=== PATIENT | male | born 1945 | race Two or more races ===

== ENCOUNTER 2024-11-06 07:04 | Day surgery (SDC) | payer MEDICARE, BC, OTHER, SELFPAY ==
--- NOTE | 2024-11-05 09:23 | EKG_ITS ---
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
[2024-11-05 12:36] VITALS: BMI 27.6
[2024-11-05 13:34] LABS: Basophils # (Auto) 0.1 Thou/mm3 (0.0-0.2); Basophils % (Auto) 1 % (0-2.5); Eosinophils # (Auto) 0.2 Thou/mm3 (0.0-0.5); Eosinophils % (Auto) 3 % (0-10); Hematocrit 39.4 % (41.0-53.0); Hemoglobin 13.3 g/dL (13.5-16.0); Immature Granulocytes % (Auto) 0 % (0-0); Immature Granulocytes Auto 0.01 Thou/mm3 (0.00-0.00); Lymphocytes # (Auto) 1.8 Thou/mm3 (1.0-4.8); Lymphocytes % (Auto) 36 % (10-50); Mean Corpuscular HGB Conc 33.8 g/dl (31.0-37.0); Mean Corpuscular Hemoglobin 29.4 pg (25.0-35.0); Mean Corpuscular Volume 87 fL (80-100); Monocytes # (Auto) 0.5 Thou/mm3 (0.0-0.8); Monocytes % (Auto) 9 % (0-12); Neutrophils # (Auto) 2.5 Thou/mm3 (1.8-7.7); Neutrophils % (Auto) 50 % (37-80); Nucleated Red Blood Cell % 0 /100 WBC (0); Platelet Count 130 Thou/mm3 (140-440); RDW Standard Deviation 37.8 fL (35.1-43.9); Red Blood Count 4.52 Miln/mm3 (4.50-5.90)
[2024-11-05 13:39] LABS: Anion Gap 7 (7-16); BUN/Creatinine Ratio 16 Ratio (12-20); Blood Urea Nitrogen 19 mg/dL (9-23); Calcium 9.9 mg/dL (8.3-10.6); Carbon Dioxide 28.6 mMol/L (20.0-31.0); Chloride 104 mMol/L (98-107); Creatinine (Component) 1.2 mg/dL (0.6-1.3); Glucose 101 mg/dL (74-106); Osmolality,Calculated 281 (275-295); Potassium 4.3 mMol/L (3.4-5.1); Sodium 140 mMol/L (136-145); eGFR > 60 See Note
[2024-11-05 13:44] LABS: INR 1.1 (0.9-1.3); Partial Thromboplastin Time 30.8 Seconds (22.0-36.0); Prothrombin Time 12.3 Seconds (9.0-12.2)
[2024-11-06] VITALS (12 sets, daily range): BP systolic 113–146; BP diastolic 59–71; PULSE 42–69; RESP 12–17; TEMP 36.6–36.7; O2SAT 92–99
[2024-11-06] MEDS: DIAZEPAM 5 MG TABLET PO (07:30)
[2024-11-06] MEDS: SODIUM CHLORIDE 0.45 % 500 ML 100 ML IV (07:35)
--- NOTE | 2024-11-06 08:07 | PD.CARDCATH ---
Cardiac Cath Procedure Procedure Narrative Date of the procedure 11/06/2024 Title of the procedure 1. Left heart catheterization 2. Left coronary angiogram 3. Right coronary angiogram 4. Left ventriculogram 5. Conscious sedation 6. Radiographic interpretation supervision 7. Ultrasound guidance for Right radial access Indication for the procedure This is a 79-year-old gentleman with past medical history of hypertension hyperlipidemia patient was planning for surgery Cardiolite scan was abnormal Cardiac catheter and cholangiogram recommended Procedure This is done in the cardiac lab under continuous electrocardiographic monitoring Intermittent blood pressure monitoring right radial arterial access obtained using modified Seldinger technique 6 Turkish radial sheath was placed under ultrasound guidance TIG catheter was used for selective injection of the Left coronary artery TIG cather was used for selective injection of the Right coronary artery TIG cather was used for LV gram Findings Hemodynamics Left ventricular systolic function is 55% Left ventricular end-diastolic pressure is 18 mmHg Gradient across the aortic valve is 0 mm gradient Coronary anatomy Right Dominance Left main coronary artery is Normal Left anterior descending artery is Normal Diagonal vessel is Luminal irregularities Left circumflex artery is Normal Obtuse marginal vessel is No significant coronary lesion Right coronary artery is Codominant vessel normal Posterior descending artery is Normal Conclusion No significant coronary lesion Recommendation Continue medical management
--- NOTE | 2024-11-06 09:30 | PC.NURSE ---
TR band removed at this time. Surgical site asymptomatic, no active bleeding, no hematoma noted on right upper extremity or around the surgical site. Capillary refill < 3 seconds. No noted changes in color or temperature on right upper extremity. Patient denies general and localized pain, no loss in sensation, no tingling or numbness felt to right upper extremity. Tagaderm and Coban wrap applied. Will continue to monitor
--- NOTE | 2024-11-06 09:45 | PC.NURSE ---
Surgical site remains asymptomatic, no active bleeding, no hematoma noted on right upper extremity or around the surgical site. Capillary refill < 3 seconds. No noted changes in color or temperature on right upper extremity. Patient denies generalized and localized pain, no loss in sensation, no tingling or numbness felt to right upper extremity. Tagaderm and Coban wrap in place, clean, and dry. Will continue to monitor
== END 2024-11-06 11:25 | disposition hospice, home (50) ==
PROVIDERS: PCP Family Medicine; Referring Provider Internal Medicine; Visit Provider Internal Medicine
PROC: (CPT 93458; principal; 2024-11-06 07:45)
DX: I25.119 Atherosclerotic heart disease of native coronary artery with unspecified angina pectoris (principal); E78.5 Hyperlipidemia, unspecified; I10 Essential (primary) hypertension; I48.91 Unspecified atrial fibrillation; Z79.01 Long term (current) use of anticoagulants
CPT/HCPCS: 93458; 36415; 80048; 85025; 85610; 85730; 93005; 99152; A4216; A4649; C1769; C1887; C1894; J0171; J0461; J0583; J1643; J2250; J2310; J2371; J3010; J3490; J7040; Q9967; A9270; J1644; J2305

== ENCOUNTER → 2024-12-11 | Outpatient (BNVA) | payer MEDICARE, BC, OTHER, SELFPAY | END | disposition home or self-care (01) | PROVIDERS: PCP Family Medicine; Referring Provider Family Medicine; Visit Provider Urology | DX: N41.1 Chronic prostatitis (principal); N40.1 Benign prostatic hyperplasia with lower urinary tract symptoms; N13.8 Other obstructive and reflux uropathy | CPT/HCPCS: 55700; 76942; 81003; 96372; A4649; J1580; J3490; A9270 ==

== ENCOUNTER → 2025-01-17 | Outpatient (CLI) | payer MEDICARE, BC, OTHER, SELFPAY ==
[2025-01-17 14:42] LABS: Glucose Estimated Average 111 mg/dL (80-131); Hemoglobin A1C 5.5 % Hgb (4.8-6.0)
[2025-01-17 15:32] LABS: Cardiac Risk Estimate 2.2 RATIO (4.0-6.7); Cholesterol 115 mg/dL (132-200); HDL Cholesterol 52 mg/dL (40-60); LDL Cholesterol,Calculated 51 mg/dL (0-130); Triglycerides 62 mg/dL (30-150)
== END | disposition home or self-care (01) ==
LOC: COPL 13:34
PROVIDERS: PCP Family Medicine; Referring Provider Psychiatry & Neurology Neurology; Visit Provider Psychiatry & Neurology Neurology
DX: I63.9 Cerebral infarction, unspecified (principal)
CPT/HCPCS: 36415; 80061; 83036

== ENCOUNTER → 2025-03-25 | Outpatient (BNVA) | payer MEDICARE, BC, OTHER, SELFPAY | END | disposition home or self-care (01) | PROVIDERS: PCP Family Medicine; Referring Provider Family Medicine; Visit Provider Urology | DX: N40.1 Benign prostatic hyperplasia with lower urinary tract symptoms (principal); N13.8 Other obstructive and reflux uropathy; N32.81 Overactive bladder; K40.90 Unilateral inguinal hernia, without obstruction or gangrene, not specified as recurrent; Z86.73 Personal history of transient ischemic attack (TIA), and cerebral infarction without residual deficits | CPT/HCPCS: 81003; 99212; G0463 ==

== ENCOUNTER → 2025-03-25 | Outpatient (CLI) | payer MEDICARE, BC, OTHER, SELFPAY ==
[2025-03-27 19:52] LABS: PSA, Free 1.27 ng/mL; PSA, Total 5.3 ng/mL (< OR = 4.0)
[2025-03-28 06:58] LABS: PSA, % Free 24 % (calc) (>25)
== END | disposition home or self-care (01) ==
LOC: COPL 11:39
PROVIDERS: PCP Family Medicine; Referring Provider Urology; Visit Provider Urology
DX: R97.20 Elevated prostate specific antigen [PSA] (principal); N40.1 Benign prostatic hyperplasia with lower urinary tract symptoms
CPT/HCPCS: 36415; 84153; 84154

== ENCOUNTER → 2025-05-14 | Outpatient (BNVA) | payer MEDICARE, BC, OTHER, SELFPAY | END | disposition home or self-care (01) | PROVIDERS: PCP Family Medicine; Referring Provider Family Medicine; Visit Provider Urology | DX: N32.89 Other specified disorders of bladder (principal); N40.1 Benign prostatic hyperplasia with lower urinary tract symptoms; N13.8 Other obstructive and reflux uropathy; Z86.73 Personal history of transient ischemic attack (TIA), and cerebral infarction without residual deficits | CPT/HCPCS: 52000; 81003; 96372; A4217; A4649; C1894; J1580; A9270 ==

== ENCOUNTER → 2025-05-20 | Outpatient (CLI) | payer MEDICARE, BC, OTHER, SELFPAY ==
[2025-05-20 14:34] LABS: Anion Gap 4 (7-16); BUN/Creatinine Ratio 16 Ratio (12-20); Blood Urea Nitrogen 26 mg/dL (9-23); Calcium 9.5 mg/dL (8.3-10.6); Chloride 104 mMol/L (98-107); Creatinine (Component) 1.6 mg/dL (0.6-1.3); Glucose 101 mg/dL (74-106); Osmolality,Calculated 278 (275-295); Potassium 4.3 mMol/L (3.4-5.1); Sodium 137 mMol/L (136-145); eGFR 44 See Note
== END | disposition home or self-care (01) ==
LOC: COPL 13:43
PROVIDERS: PCP Family Medicine; Referring Provider Urology; Visit Provider Urology
DX: R31.0 Gross hematuria (principal)
CPT/HCPCS: 36415; 80048

== ENCOUNTER → 2025-05-31 | Outpatient (BNVA) | payer MEDICARE, BC, OTHER, SELFPAY | END | disposition home or self-care (01) | PROVIDERS: PCP Family Medicine; Referring Provider Family Medicine; Visit Provider Urology | DX: N40.0 Benign prostatic hyperplasia without lower urinary tract symptoms (principal); I48.91 Unspecified atrial fibrillation | CPT/HCPCS: 99212; G0463 ==

== ENCOUNTER → 2025-06-06 | Outpatient (BNVA) | payer MEDICARE, BC, OTHER, SELFPAY | END | disposition home or self-care (01) | PROVIDERS: PCP Family Medicine; Referring Provider Family Medicine; Visit Provider Urology | DX: N40.1 Benign prostatic hyperplasia with lower urinary tract symptoms (principal); R39.12 Poor urinary stream; Z86.73 Personal history of transient ischemic attack (TIA), and cerebral infarction without residual deficits | CPT/HCPCS: 51741; 51798 ==

== ENCOUNTER → 2025-07-30 | Outpatient (BNVA) | payer MEDICARE, BC, OTHER, SELFPAY | END | disposition home or self-care (01) | PROVIDERS: PCP Family Medicine; Referring Provider Family Medicine; Visit Provider Urology | DX: N40.1 Benign prostatic hyperplasia with lower urinary tract symptoms (principal); N13.8 Other obstructive and reflux uropathy; N32.81 Overactive bladder; Z98.890 Other specified postprocedural states; N28.1 Cyst of kidney, acquired; N13.30 Unspecified hydronephrosis; I48.91 Unspecified atrial fibrillation; N18.30 Chronic kidney disease, stage 3 unspecified | CPT/HCPCS: 81003; 99212; G0463 ==

== ENCOUNTER 2025-08-12 12:04 | Emergency (ER) | payer MEDICARE, BC, OTHER, SELFPAY ==
[2025-08-12 12:06] VITALS: BMI 26.3
--- NOTE | 2025-08-12 12:27 | XR_ITS ---
Examination: CT abdomen and pelvis without contrast. Coronal 3-D reconstructions. Sagittal 2-D reconstructions. Date and time of exam:August 12, 2025 1401 hours INDICATIONS: Lower abdominal pain and constipation beginning 2 days ago CTDI: vol (mGy): 8.26 DLP: (mGycm): 507 Technique: Axial images of the abdomen have been obtained, 3 mm slice thickness Intravenous contrast material has not been administered. Low dose protocols were performed. One or more of the following dose reduction techniques were used; automated exposure control, adjustment of the mA and/or KV according to patient size, use of iterative reconstruction technique. Findings: 20 mm posterior right lobe liver lesion No gallstones No pancreatic or adrenal mass Spleen is not enlarged Findings most consistent with 4 cm left parapelvic cyst, no renal or ureteral calculi Left lateral periaortic lymphadenopathy, the largest lymph node 16 mm No bowel obstruction Normal appendix No diverticulitis Prostatomegaly transverse dimension 5.6 cm Contracted urinary bladder with wall thickening up to 12 mm IMPRESSION: Recommend repeating this study with intravenous contrast to confirm 4 cm left parapelvic cysts and exclude left hydronephrosis as well as to better assess for abdominal lymphadenopathy Cystitis pattern prostatomegaly
--- NOTE | 2025-08-12 12:27 | PD.EDRME ---
Rapid Medical Screening Exam RME Arrival date/time: 08/12/25 12:04 80-year-old male with a history of hyperlipidemia presents to the emergency room with a chief complaint of lower abdominal pain x 2 days I have greeted and performed a focused initial assessment of this patient. A comprehensive ED assessment and evaluation of the patient, analysis of all test results, and completion of the medical decision making process will be conducted by additional ED providers. Chief Complaint: Abdominal Pain Time Seen by Provider: 08/12/25 12:11 Vital signs reviewed by provider: Yes
--- NOTE | 2025-08-12 12:42 | PD.EDABDPN ---
ED Abdominal Pain RME/HPI General Chief Complaint: Abdominal Pain Stated complaint: ABD PAIN 2ND NO BM X TUESDAY Time seen by provider: 08/12/25 12:11 Arrival date/time: 08/12/25 12:04 80-year-old male with a history of hyperlipidemia presents to the emergency room with a chief complaint of lower abdominal pain x 2 days Source: patient Mode of arrival: ambulatory Limitations: no limitations RME / HPI RME / HPI narrative: 08/12/25 12:04 80-year-old male with a history of hyperlipidemia presents to the emergency room with a chief complaint of lower abdominal pain x 2 days I have greeted and performed a focused initial assessment of this patient. A comprehensive ED assessment and evaluation of the patient, analysis of all test results, and completion of the medical decision making process will be conducted by additional ED providers. Related Data Home Medications ?Medication ?Instructions ?Recorded ?Confirmed TAMSULOSIN HCL 0.4 mg PO QDAY ##90 11/01/16 07/30/25 aspirin 81 mg capsule 81 mg PO QDAY 12/11/24 07/30/25 atorvastatin 10 mg tablet 10 mg PO QDAY 05/31/25 07/30/25 Allergies Allergy/AdvReac Type Severity Reaction Status Date / Time NKA* Allergy Uncoded 08/12/25 12:07 ED Exam General Limitations: Present no limitations Course Orders Category Date Time Status CT abdomen pelvis wo con Stat Exams 08/12/25 12:27 Ordered CBC Stat Lab 08/12/25 12:27 Ordered CMP [Comprehensive Metabolic Panel] Stat Lab 08/12/25 12:27 Ordered UA [Urinalysis] Stat Lab 08/12/25 12:27 Ordered Urine Culture Stat Lab 08/12/25 12:27 Ordered Discharge Plan Prescriptions/Referrals Prescriptions/Med Rec: No Action aspirin 81 mg capsule 81 mg PO QDAY atorvastatin 10 mg tablet 10 mg PO QDAY TAMSULOSIN HCL 0.4 MG CAP.ER.24H 0.4 mg PO QDAY Qty: 90 Referrals: Evgeny Levine MD [Primary Care Provider, Family Practice] - In 1 week Patient/Caregiver Discharge Instructions Print Language: New Zealander
[2025-08-12 12:58] LABS: Basophils # (Auto) 0.1 Thou/mm3 (0.0-0.2); Basophils % (Auto) 1 % (0-2.5); Eosinophils # (Auto) 0.1 Thou/mm3 (0.0-0.5); Eosinophils % (Auto) 1 % (0-10); Hematocrit 37.0 % (41.0-53.0); Hemoglobin 12.4 g/dL (13.5-16.0); Immature Granulocytes Auto 0.01 Thou/mm3 (0.00-0.00); Lymphocytes # (Auto) 1.3 Thou/mm3 (1.0-4.8); Lymphocytes % (Auto) 21 % (10-50); Mean Corpuscular HGB Conc 33.5 g/dl (31.0-37.0); Mean Corpuscular Hemoglobin 29.6 pg (25.0-35.0); Mean Corpuscular Volume 88 fL (80-100); Monocytes # (Auto) 0.5 Thou/mm3 (0.0-0.8); Monocytes % (Auto) 8 % (0-12); Neutrophils # (Auto) 4.1 Thou/mm3 (1.8-7.7); Neutrophils % (Auto) 68 % (37-80); Nucleated Red Blood Cell # 0.00 Thou/mm3 (0.00-0.00); Nucleated Red Blood Cell % 0 /100 WBC (0); Platelet Count 183 Thou/mm3 (140-440); RDW Standard Deviation 38.8 fL (35.1-43.9); Red Blood Count 4.19 Miln/mm3 (4.50-5.90); White Blood Count 5.9 Thou/mm3 (3.8-10.6)
[2025-08-12 13:17] LABS: Alanine Aminotransferase 9 U/L (10-49); Albumin, Serum 4.6 gm/dL (3.4-4.8); Albumin/Globulin Ratio 1.3 (1.2-2.2); Alkaline Phosphatase 114 U/L (46-116); Anion Gap 9 (7-16); Aspartate Amino Transferase 16 U/L (0-34); BUN/Creatinine Ratio 8 Ratio (12-20); Bilirubin,Total 0.8 mg/dL (0.3-1.2); Blood Urea Nitrogen 15 mg/dL (9-23); Calcium 9.9 mg/dL (8.3-10.6); Calcium (Corrected) 9.9 mg/dL (8.5-10.1); Carbon Dioxide 26.9 mMol/L (20.0-31.0); Chloride 104 mMol/L (98-107); Creatinine (Component) 1.8 mg/dL (0.6-1.3); Estimated Creatinine Clearance 38.7 mL/min (>60); Globulin 3.5 gm/dL (2.3-3.5); Glucose 101 mg/dL (74-106); Osmolality,Calculated 280 (275-295); Potassium 4.3 mMol/L (3.4-5.1); Sodium 140 mMol/L (136-145); Total Protein 8.1 gm/dL (5.7-8.2); eGFR 38 See Note
[2025-08-12 13:32] LABS: Collection Type, Urine Clean Catch
[2025-08-12 13:59] LABS: Bilirubin,Urine Negative (Negative); Blood,Urine Negative (Negative); Clarity,Urine Clear (Clear/Hazy); Color,Urine Yellow (Lt Yel-Yel); Glucose, Urine Negative (Negative); Ketones,Urine Negative (Negative); Leukocyte Esterase,Urine Positive (Negative); Nitrite,Urine Negative (Negative); PH,Urine 5.5 (5.0-7.0); Protein,Urine 1+ (Neg - Trace); RBC,Urine 7 /hpf (0-3); Specific Gravity,Urine 1.032 (1.001-1.035); Squamous Epithelial Cell,Urine < 1 /hpf (0-5); Urobilinogen,Urine Negative mg/dL (0.0-1.0); WBC,Urine 14 /hpf (0-5)
--- NOTE | 2025-08-12 15:03 | PD.EDRME ---
Rapid Medical Screening Exam RME Arrival date/time: 08/12/25 12:04 08/12/25 12:04 80-year-old male with a history of hyperlipidemia presents to the emergency room with a chief complaint of lower abdominal pain x 2 days I have greeted and performed a focused initial assessment of this patient. A comprehensive ED assessment and evaluation of the patient, analysis of all test results, and completion of the medical decision making process will be conducted by additional ED providers. @1521 I reviewed the laboratory results and determined that the patient did not have creatinine clearance. I called Dr. Mock who recommended a renal ultrasound and a PET scan tomorrow. Chief Complaint: Abdominal Pain Time Seen by Provider: 08/12/25 12:11 Vital signs reviewed by provider: Yes RME Narrative: 08/12/25 12:04 80-year-old male with a history of hyperlipidemia presents to the emergency room with a chief complaint of lower abdominal pain x 2 days I have greeted and performed a focused initial assessment of this patient. A comprehensive ED assessment and evaluation of the patient, analysis of all test results, and completion of the medical decision making process will be conducted by additional ED providers.
--- NOTE | 2025-08-12 15:20 | XR_ITS ---
Examination: Retroperitoneal ultrasound, complete Technique: Multiple high resolution grayscale images of the retroperitoneum obtained, including kidneys and bladder. Exam date and time:August 12, 2025 1529 hours INDICATIONS: Right flank pain radiating to the mid abdomen one month ago, CT examination today of the abdomen 4 cm left parapelvic cysts versus hydronephrosis FINDINGS: Right kidney 11.8 cm cortex 1.6 cm Left kidney 10.7 cm cortex 1.7 cm Moderate left hydronephrosis Left kidney 3.5 cm cyst Contracted urinary bladder Significant prostatomegaly 70.0 cc no prostate nodules IMPRESSION: Moderate left hydronephrosis, which may be secondary to the significant prostatomegaly
--- NOTE | 2025-08-12 16:46 | EDNOTE_ITS ---
ED General RME/HPI General Chief complaint: Abdominal Pain Stated complaint: ABD PAIN 2ND NO BM X TUESDAY Time Seen by Provider: 08/12/25 12:11 Arrival date/time: 08/12/25 12:04 CC: Abdominal pain HPI ongoing for the past 6 weeks with progressive increase in severity this also includes intermittent constipation going from a bowel movement every 2 days to the last bowel movement was 7 days ago. Patient stated pain is becomes intolerable even though the patient has been seen by PCP and has a referral to the GI specialist. Patient does see Dr. Disla, urologist, for enlarged prostate. Patient denies chest pain shortness of breath difficulty breathing painful or bloody urination. Patient states she has had a weight loss of approximately 20 pounds over the last 6 weeks. RME / HPI RME / HPI narrative: 08/12/25 12:04 08/12/25 12:04 80-year-old male with a history of hyperlipidemia presents to the emergency room with a chief complaint of lower abdominal pain x 2 days I have greeted and performed a focused initial assessment of this patient. A comprehensive ED assessment and evaluation of the patient, analysis of all test results, and completion of the medical decision making process will be conducted by additional ED providers. @1521 I reviewed the laboratory results and determined that the patient did not have creatinine clearance. I called Dr. Mock who recommended a renal ultrasound and a PET scan tomorrow. Related Data Home Medications ?Medication ?Instructions ?Recorded ?Confirmed TAMSULOSIN HCL 0.4 mg PO QDAY ##90 11/01/16 07/30/25 aspirin 81 mg capsule 81 mg PO QDAY 12/11/2407/30 atorvastatin 10 mg tablet 10 mg PO QDAY 05/31/2507/30 Previous Rx's ?Medication ?Instructions ?Recorded ketorolac 10 mg tablet 10 mg PO Q8H #10 tabs polyethylene glycol 3350 17 4 g PO QDAY #238 grams gram/dose oral powder (Miralax) Allergies Allergy/AdvReac Type Severity Reaction Status Date / Time NKA* Allergy Uncoded 08/12/25 12:07 Review of Systems Review of Systems Narrative Review of Systems: GEN: No fever, no chills, no weight loss EYES: No discharge, no visual changes, no pain HEENT: No ear pain, no congestion, no sore throat PULM: No shortness of breath, no cough, no congestion CV: No chest pain, no dyspnea on exertion, no palpitations GI: No nausea, no vomiting, no diarrhea, + pain, no constipation : No frequency, no urgency, no dysuria MUSC/SKEL: No joint pain, no back pain SKIN: No rash PSYCH: No hallucinations, no depression HEME/LYMPH: No easy bleeding or bruising tendencies NEURO: No weakness, no headache Past Medical History Past Medical History NEUROLOGIC: Positive Cerebrovascular Accident (); Negative Neurological Disorders, Transient Ischemic Attacks (TIA), Dementia, Alzheimer's Disease, Parkinson's Disease, Brain Tumor, Meningitis, Seizures, Epilepsy, Multiple Sclerosis, Cerebral Palsy, Amyotrophic Lateral Sclerosis (ALS/Kimber Gehrig's), Guillain-Needmore Syndrome, Spina Bifida, Paralysis, Peripheral Neuropathy, Shelton's Palsy, Subdural Hematoma, Migraine, Head Trauma, Spinal Cord Injury or Traumatic Brain Injury CARDIAC: Negative Cardiac Disorders, Myocardial Infarction, Cardiac Arrhythmia, Atrial Fibrillation, Angina, Heart Murmur, Coronary Artery Disease, Atherosclerotic Heart Disease, Peripheral Vascular Disease, Hypercholeste rolemia, Aneurysm, Congestive Heart Failure, Congenital Heart Disease, Valvular Heart Disease, Rheumatic Fever, Cardiomyopathy, Edema, Pericarditis, Cellulitis, Deep Vein Thrombosis, Hypertension, Hypotension or Varicose Veins RESPIRATORY: Negative Chronic Obstructive Pulmonary Disease (COPD), Asthma, Bronchitis, Emphysema, Pneumonia, Pulmonary Fibrosis, Cystic Fibrosis, Tuberculosis, Pulmonary Embolism, Pulmonary Edema or Sleep Apnea GASTROINTESTINAL: Negative Gastrointestinal Disorders, Hepatitis, Cirrhosis, Pancreatitis, Celiac Disease, Gall Bladder Disease, Gastrointestinal Bleed, Esophageal Varices, Richey's Esophagus, Colitis, Ulcerative Colitis, Diverticulitis, Diverticulosis, Ulcer, Irritable Bowel, Crohn's Disease, Obstructive Bowel, Hiatal Hernia, Hemorrhoids, Gastroesophageal Reflux Disease or Obesity GENITOURINARY: Positive Benign Prostatic Hyperplasia (BIOPSY 8 Y +); Negative Genitourinary Disorders, Renal Disease, Kidney Stones, Polycystic Kidney Disease, Neurogenic Bladder, Inguinal Hernia or Dialysis REPRODUCTIVE: Negative Fibroids, Genital Herpes, Gonorrhea, Syphilis or Testicular Cancer MUSCULOSKELETAL: Positive Musculoskeletal Disorders; Negative Marfan's Syndrome, Arthritis, Rheumatoid Arthritis, Osteoporosis, Degenerative Disk Disease, Gout, Scoliosis, Carpal Tunnel Syndrome, Fibromyalgia, Fractures, Degenerative Joint Disease, Osteomyelitis or Poliovirus ENT: Negative Cataracts, Glaucoma, Blind, Retinal Detachment, Macular Degeneration, Ear Infection, Deafness, Head Trauma or Eye Prosthesis ENDOCRINE: Negative Endocrine Disorders, Diabetes Mellitus Type 1, Diabetes Mellitus Type 2, Hypoglycemia, Patricia's Syndrome, [place]'s Disease, Hyperthyroidism, Hypothyroidism, Parathyroid Disease, Pituitary Disease, Systemic Lupus Erythematosus, Syndrome of Inappropriate Antidiuretic Hormone (SIADH), Adrenal Disease or Graves' Disease HEMATOLOGIC: Positive Anemia (BORDERLINE); Negative Blood Disorders, Leukemia, Hemophilia, Thalassemia, Sickle Cell Disease or Clotting Problems PSYCHO/SOCIAL: Negative Psychiatric Problems, Schizophrenia, Recreational Drug Use, Bipolar Disorder, Depression, Anxiety, Behavior Problems, Self-Mutilation, Attention Deficit Disorder, Attention Deficit Hyperactivity Disorder, Depression or Eating Disorder OTHER HISTORY: Positive Cancer; Negative Hospitalization, Autoimmune Disease, Down Syndrome, Autism, D evelopmental Delay, Shingles, Falls, Blood Transfusions, Blood Transfusion Reaction (NA), Anesthesia Reactions, Organ Transplant, Chemotherapy, Radiation Therapy, Hyperbaric Therapy, MRSA, VRSA, Vancomycin-Resistant Enterococci, Human Immunodeficiency Virus (HIV), Chicken Pox, Measles, Mumps, Rubella ([place] Measles), Pertussis, Clostridium Difficile or Testicular Cancer Surgical History SURGICAL: Negative Cardiac Surgery, Open Heart Surgery, Coronary Artery Bypass Graft, Valve Replacement, Vascular Surgery, Coronary Stent, Cardiac Catheterization, Pacemaker, Angiogram, Auto Implanted Cardiovert Defib, Carotid Endarterectomy, Endocrine Surgery, Thyroidectomy, Ear Surgery, Tympanostomy Tube, Eye Surgery, Nose Surgery, Oral Surgery, Tonsillectomy, Adenoidectomy, Cochlear Implant, Corneal Transplant, Throat Surgery, Abdominal Surgery, Tracheostomy, Gastric Bypass Surgery, Gastrostomy, Bowel Surgery, Nephrectomy, Transurethral Resection, Joint Replacement, Amputation, Open Reduction Internal Fixation, Arthroscopy, Neurologic Surgery, Brain Shunt, Mastectomy, Lumpectomy, Hysterectomy, Tubal Ligation, Section, Vasectomy or Organ Transplant Social History SMOKING STATUS: Never smoker ED Exam Narrative Physical exam: [General: In mild discomfort not in any acute distress Head normocephalic HEENT: Within acceptable limits Neck is supple nontender Chest equal chest rise nontender to palpation Respiratory: Clear to auscultation no wheezes crackles or rubs CV: Rate rhythm is regular no murmurs rubs or clicks Abdomen is soft nontender no masses positive bowel sounds all 4 quadrants Back: No CVA tenderness no spinous process tenderness from cervical spine thoracic and lumbar spine Skin: Intact no petechiae rash induration ulceration or crepitus Extremities: Moving all extremity against resistance cap refill less than 2 seconds neurosensory intact Neuro: Awake alert oriented x3 Glascow coma 15 no focal deficits] Course Quality Measures none Orders Category Date Time Status CT Screening NOW Care 08/12/25 14:[address] abdomen pelvis w con Stat Exams 08/12/25 14:[address] abdomen pelvis wo con Stat Exams 08/12/25 12:27 Completed US renal BI Stat Exams 08/12/25 15:20 Completed CBC Stat Lab 08/12/25 12:38 Completed CMP [Comprehensive Metabolic Panel] Stat Lab 08/12/25 12:38 Completed UA [Urinalysis] Stat Lab 08/12/25 12:33 Completed Urine Culture Stat Lab 08/12/25 12:33 Received Discharge Plan Plan Patient Disposition: HOME (Self Care) Patient condition on transfer: Stable Prescriptions/Referrals Prescriptions/Med Rec: New polyethylene glycol 3350 [Miralax] 17 gram/dose powder 4 g PO QDAY Qty: 238 0RF ketorolac 10 mg tablet 10 mg PO Q8H Qty: 10 0RF Rx Instructions: maximum total duration of 5 days from all oral, intranasal, or parenteral formulations No Action aspirin 81 mg capsule 81 mg PO QDAY atorvastatin 10 mg tablet 10 mg PO QDAY TAMSULOSIN HCL 0.4 MG CAP.ER.24H 0.4 mg PO QDAY Qty: 90 Referrals: Sloan Disla MD [Physician, Urology] - In 1 week Evgeny Levine MD [Primary Care Provider, Family Practice] - In 1 week Geraldine Lilly MD [Physician, Gastroenterology] - In 1 week Problem List Clinical Impression: Abdominal pain, Hydroureter, Constipation, Lesion of liver, Renal insufficiency Patient/Caregiver Discharge Instructions Other Activity Instructions:: Take the medications as prescribed for temporary pain relief as well as for helping relieve the constipation. If there is a worsening of your symptoms in spite of the medications including fever increased abdominal pain nausea vomiting painful urination or bloody urination return imm ediately to the emergency room for reevaluation. Education Materials: Abdominal Pain, Treating Constipation Additional Instructions: Follow-up with Dr. Disla, and Dr. Lilly as stated. Print Language: Greek Stand Alone Forms: Kelsey Award Info., Patient Portal Info Letter PA/SENIOR PARALEGAL Supervising Physician PA/SENIOR PARALEGAL Supervising Physician: Amrit Bethea ENP MDM Narrative MDM hospital course (for use when minimal MDM required): Patient's case clinical findings laboratory results discussed with Dr. Soares, who agrees patient to be discharged home as the patient is already well- connected with Dr. Disla urology, and has a follow-up appointment in the next [address] Lilly. Patient was given a copy of his imaging. And advised to follow-up with both of these he was also advised if there is a worsening of symptoms including increased pain fever chills nausea vomit difficulty breathing or recurrent or worsening constipation to return the emergency room for reevaluation. I am not sure particularly with the causes as the patient has liver lesions as well as left hydroureter probably secondary to the prostate. The latter of which is already known by Dr. Disla. Clinical Information Provided by: patient Medical Records reviewed [facility] Meds/Rx considered, not ordered None Labs/Rad/Tests considered, not ordered None Chronic Illness/Social Conditions Explain: Prostamegaly hyperlipidemia EKG EKG not done Labs Labs: interpreted by [facility] Lab(s) Interpretation(s): CBC shows no leukocytosis H&H of 12.4 and 37.0 no thrombocytopenia CMP shows no significant electrolyte imbalances a creatinine of 1.8 BUN of 15. No transaminitis or T. bili elevation. Urine is 1+ protein. Leukocyte esterase +7 RBCs 14 WBCs less than 1 squamous epithelia no bacteria. Imaging Imaging interpretation: interpreted by [facility] Imaging Interpretation(s): CT is interpreted by the radiologist show peripelvic cysts recommending MRI Renal ultrasound shows left hydronephrosis probable secondary to prostamegaly.
== END 2025-08-12 18:47 | disposition home or self-care (01) ==
PROVIDERS: Nurse Practitioner Family; Emergency Provider Emergency Medicine; PCP Family Medicine
DX: N13.30 Unspecified hydronephrosis (principal); K76.9 Liver disease, unspecified; N28.9 Disorder of kidney and ureter, unspecified; K59.00 Constipation, unspecified; E78.5 Hyperlipidemia, unspecified
CPT/HCPCS: 36415; 74176; 76770; 80053; 81001; 85025; 87086; 99283

== ENCOUNTER 2025-09-20 10:00 | Day surgery (SDC) | payer MEDICARE, BC, OTHER, SELFPAY ==
[2025-09-19 12:06] VITALS: BMI 25.7
[2025-09-20] VITALS (11 sets, daily range): BP systolic 135–181; BP diastolic 62–100; PULSE 63–83; RESP 12–18; TEMP 36.6–36.8; O2SAT 97–100; BMI 25.8
[2025-09-20] MEDS: SODIUM CHLORIDE 0.9% 500 ML 500 ML 20 ML IV (11:55)
[2025-09-20] MEDS: MIDAZOLAM INJ 1 MG/ML VIAL 2 ML (ASD USE ONLY) 2 MG IVP (12:04)
[2025-09-20] MEDS: fentaNYL CIT INJ 50 mCg/ML AMP 2ML (ASD USE ONLY) IVP (12:04)
[2025-09-20] MEDS: hydrALAZINE INJ 20 MG/ML VIAL 10 MG IVP (12:15)
== END 2025-09-20 13:10 | disposition home or self-care (01) ==
PROVIDERS: PCP Family Medicine; Referring Provider Specialist; Visit Provider Specialist
PROC: 0DBE8ZX Excision of Large Intestine, Via Natural or Artificial Opening Endoscopic, Diagnostic (ICD-10-PCS; CPT 45380; principal; 2025-09-20 10:30)
DX: D12.5 Benign neoplasm of sigmoid colon (principal); K64.1 Second degree hemorrhoids; K57.30 Diverticulosis of large intestine without perforation or abscess without bleeding; N40.0 Benign prostatic hyperplasia without lower urinary tract symptoms
CPT/HCPCS: 45385; A4649; J0360; J1200; J2250; J3010; J7999

== ENCOUNTER → 2025-09-30 | Outpatient (BNVA) | payer MEDICARE, BC, OTHER, SELFPAY | END | disposition home or self-care (01) | PROVIDERS: PCP Family Medicine; Referring Provider Family Medicine; Visit Provider Urology | DX: N40.0 Benign prostatic hyperplasia without lower urinary tract symptoms (principal); N28.9 Disorder of kidney and ureter, unspecified; R31.9 Hematuria, unspecified | CPT/HCPCS: 81003; 99212; G0463 ==

== ENCOUNTER → 2025-10-10 | Outpatient (BNVA) | payer MEDICARE, BC, OTHER, SELFPAY | END | disposition home or self-care (01) | PROVIDERS: PCP Family Medicine; Referring Provider Family Medicine; Visit Provider Urology | DX: N32.89 Other specified disorders of bladder (principal); N40.1 Benign prostatic hyperplasia with lower urinary tract symptoms; N13.8 Other obstructive and reflux uropathy | CPT/HCPCS: 52000; 96372; A4217; A4649; C1894; J1580; A9270 ==

== ENCOUNTER → 2025-10-11 | Outpatient (BNVA) | payer MEDICARE, BC, OTHER, SELFPAY | END | disposition home or self-care (01) | PROVIDERS: PCP Family Medicine; Referring Provider Family Medicine; Visit Provider Urology | DX: N40.0 Benign prostatic hyperplasia without lower urinary tract symptoms (principal); Z86.79 Personal history of other diseases of the circulatory system; Z86.73 Personal history of transient ischemic attack (TIA), and cerebral infarction without residual deficits | CPT/HCPCS: 99212; G0463 ==

== ENCOUNTER 2025-11-07 11:55 | Day surgery (SDC) | payer MEDICARE, OTHER, BC, SELFPAY ==
[2025-11-06 10:18] VITALS: BMI 26.4
[2025-11-06 11:17] LABS: Alanine Aminotransferase 10 U/L (10-49); Albumin, Serum 4.3 gm/dL (3.4-4.8); Albumin/Globulin Ratio 1.2 (1.2-2.2); Alkaline Phosphatase 96 U/L (46-116); Anion Gap 11 (7-16); Aspartate Amino Transferase 17 U/L (0-34); BUN/Creatinine Ratio 12 Ratio (12-20); Bilirubin,Total 0.6 mg/dL (0.3-1.2); Blood Urea Nitrogen 19 mg/dL (9-23); Calcium 8.9 mg/dL (8.3-10.6); Calcium (Corrected) 8.9 mg/dL (8.5-10.1); Carbon Dioxide 27.8 mMol/L (20.0-31.0); Chloride 105 mMol/L (98-107); Creatinine (Component) 1.6 mg/dL (0.6-1.3); Estimated Creatinine Clearance 43.5 mL/min (>60); Globulin 3.5 gm/dL (2.3-3.5); Glucose 90 mg/dL (74-106); Osmolality,Calculated 289 (275-295); Potassium 4.1 mMol/L (3.4-5.1); Sodium 144 mMol/L (136-145); Total Protein 7.8 gm/dL (5.7-8.2); eGFR 44 See Note
[2025-11-07] VITALS (14 sets, daily range): BP systolic 137–177; BP diastolic 59–86; PULSE 57–94; RESP 12–20; TEMP 36.1–37.2; O2SAT 98–100; BMI 26.2
--- NOTE | 2025-11-07 13:45 | XR_ITS ---
EXAMINATION: Left retrograde pyelogram with without KUB Fluoroscopy 4 spot fluoroscopic films of the abdomen Date and time: November 07, 2025, 1943 hours INDICATIONS: CT examination 08/12/2025 cystitis pattern left hydronephrosis, TECHNIQUE AND FINDINGS: 4. Spot abdomen films, fluoroscopic Partial visualization dilated calyces No ureteral stent noted Fluoroscopy 1.27-minute radiation dose 23.512 mGy IMPRESSION: Retrograde pyelogram as above
--- NOTE | 2025-11-07 18:17 | SUR.PHASEI ---
Pt. arrived to recovery via gurney, eyes closed, LMA in place, pt. receiving 8 liters 02 via oxymask, VSS, lung sounds clear, equal expansion joyce., Lul KRISHNAN removed LMA, received report on pt. from Lul ALBA and Lucho ALBA.
--- NOTE | 2025-11-07 19:30 | SUR.PHASEII ---
Addendum entered by Tami Alva RN 11/07/25 20:43: Vanco started in OR, will complete prior to discharge per order. Original Note: Spoke with Dr. Disla, wants pt. to receive 2gm vancomycin before discharge.
--- NOTE | 2025-11-07 21:40 | SUR.PHASEII ---
Pt. meets criteria for discharge. VSS, no c/o pain or nausea at this time, pt. has been urinating, discharge instructions provided to pt. and pt.'s spouse, verbalized understanding, IV discontinued without complications, pt. escorted to vehicle with all of belongings by staff.
--- NOTE | 2025-11-07 21:40 | ESOP_ITS ---
RE: JEN BURTON : 1945 DATE OF OPERATION: 11/07/2025 PREPROCEDURE DIAGNOSES: Large filling defect, left kidney; moderate to high grade hydronephrosis, left; non-functioning kidney, left. POSTPROCEDURE DIAGNOSES: Status post cystoscopy with retrograde pyelogram and placement of indwelling ureteral stent, left. PROCEDURE PERFORMED: Fluoroscopic imaging of upper urinary tract; cystoscopy; retrograde pyelogram under fluoroscopic control, left; placement of indwelling ureteral stent for renal decompression, left. SURGEON: Reinaldo Suárez MD SMOG TECHNICIAN SURGEON: Sloan Disla MD ANESTHESIA: General. INDICATIONS: This patient is a 80-year-old gentleman who comes for further evaluation of a large filling defect in the left upper urinary tract with hydronephrosis and non- functioning left kidney for identification of underlying cause, ureteral versus renal origin. The procedure was discussed with the patient in detail and with risks, benefits, and alternatives and appropriate consent is obtained. DESCRIPTION OF FINDINGS: Fluoroscopically, no abnormalities are noted with regard to the upper urinary tract. Cystoscopy shows normal anterior urethra. Prostate is moderately enlarged with a large middle lobe. Bladder shows bladder trabeculation; the bladder mucosa is unremarkable, no evidence for tumor. Both orifices are readily identified. Retrograde pyelogram is obtained which shows a very narrow ureter with tortuosity in the proximal ureter, irregular contours of the ureter in the proximal ureter, and large filling defect in the renal pelvis and calyces with moderate to severe hydronephrosis of calyces. With great difficulty, the ureter can be straightened out and a wire can be placed in the upper pole followed by obtaining fluid for culture and sensitivity as well as cytology, and eventually a stent is placed for renal decompression. DESCRIPTION OF PROCEDURE: Prior to initiation of anesthesia, the patient is appropriately identified by the surgeon and operating room personnel. The indication for surgery, site, and scope of surgery are reconfirmed with the patient. Patient received perioperative antibiotics intravenously. After induction of general anesthesia, the patient was positioned in the lithotomy position; the outer genitalia are prepped and draped in a sterile fashion. Cystoscopy is performed using a 21-[place] instrument. This shows the aforementioned findings. A 5- [place] angiographic catheter is introduced into the left ureteral orifice over a guidewire. The guidewire is removed. Contrast is injected with the aforementioned findings. Attempts are made to advance a wire up into the kidney, but there is a very tight 360-degree curl in the proximal ureter, which necessitates a hydrophilic wire as well as an angiographic catheter to eventually be straightened out. The angiographic catheter is advanced over the guidewire into the upper pole. The guidewire is removed under pressure. Bloody urine that looks infected drains from that upper pole. 80 mL are aspirated with a syringe and half is sent for cytology, half for culture and sensitivity testing. A super stiff wire is then placed into the upper pole and under cystoscopic control, a multi-length ureteral stent is placed with its proximal end in the upper dilated pole and with the distal end in the bladder. The bladder is emptied; the patient is awakened and returned to recovery where he arrived in satisfactory condition. ESTIMATED BLOOD LOSS FROM THE PROCEDURE: Minimal. COMPLICATIONS: None. SPECIMENS: Urine from kidney for cytology as well as for culture and sensitivity testing. DISPOSITION: The patient will be discharged home from the outpatient surgical area with appropriate antibiotic coverage. Further management will depend on findings of cytology. At any rate, the left kidney, likely with ureter, likely with lymph nodes need to be removed. DT: 18:16:12 TT: 21:39:00 Ref: [id number] - TID: [id number]
== END 2025-11-07 21:40 | disposition home or self-care (01) ==
PROVIDERS: Anesthesiology; PCP Family Medicine; Referring Provider Urology; Visit Provider Specialist
PROC: 0TJB8ZZ Inspection of Bladder, Via Natural or Artificial Opening Endoscopic (ICD-10-PCS; CPT 52000; principal; 2025-11-07 13:45)
DX: N40.0 Benign prostatic hyperplasia without lower urinary tract symptoms (principal); N13.30 Unspecified hydronephrosis; N32.89 Other specified disorders of bladder; R93.41 Abnormal radiologic findings on diagnostic imaging of renal pelvis, ureter, or bladder
CPT/HCPCS: 52332; 36415; 74420; 80053; 87086; A4217; A4314; A4649; C1769; C1894; C2617; J1580; J1938; J2704; J3010; J3373; J3374